=== PATIENT | female | born 1940 | race Caucasian/White ===

== ENCOUNTER 2017-07-18 09:56 | Emergency (ER) | payer OTHER ==
[~2017-07-18] VITALS: Ht 147.3 cm; Wt 68.1 kg
[~2017-07-18 09:56] MED LIST: ASPIR 8181 M1 PO; CALCIUM 500 WI1 EAC2 PO; CALCIUM PO; CENTRUM SILVER1 EAC3 PO; CITALOPRAM HBR20 MG PO; DICYCLOMINE HCL10 MG PO; FEMARA2.5 MG PO; HYDROCHLOROTHIA25 MG PO; KEFLEX500 MG PO; LEVOTHYROXINE112 MCG PO; LOPRESSOR25 MG PO; NASAL SPRAY BOTH NARES; OMEGA-3 FLAXS1000 MG PO; VIT D PO
[2017-07-18 10:26] LABS: HEMATOCRIT 33.7 % (36.0-46.0); HEMOGLOBIN 11.3 G/DL (11.9-15.5); MCH 28.8 PG (29.0-34.0); MCHC 33.5 G/DL (30.0-36.0); PLATELET COUNT 300 K/uL (156-360); RBC DIS.WIDTH-CV 13.2 % (11.8-14.6); RBC DIS.WIDTH-SD 41.6 % (39-53); RED BLOOD COUNT 3.92 M/uL (3.80-5.20); WHITE BLOOD COUNT 16.2 K/uL (4.1-10.2)
[2017-07-18 11:04] LABS: ALBUMIN 3.8 G/DL (3.2-4.8); ALKALINE PHOSPHATASE 42 IU/L (3-129); ALT (GPT) 9 IU/L (3-49); AST (GOT) 14 IU/L (2-34); CHLORIDE 99 MEQ/L (99-109); CREATININE 0.6 MG/DL (0.6-1.3); GFR ESTIMATE (CALCULATED) > 59 mL/min/; GLUCOSE 149 mg/dL (70-99); POTASSIUM 3.2 MEQ/L (3.7-5.4); SODIUM 135 MEQ/L (136-147); TOTAL BILIRUBIN 0.4 MG/DL (0.0-1.0); TOTAL PROTEIN 6.9 G/DL (6.4-8.3); UREA NITROGEN (BUN) 7 mg/dL (9-23)
[2017-07-18 13:55] LABS: C DIFF TOXIN NEGATIVE (NEGATIVE)
[2017-07-18 15:29] LABS: APPEARANCE CLEAR ((CLEAR)); BILIRUBIN NEGATIVE; BLOOD SMALL; COLOR YELLOW ((YELLOW)); GLUCOSE (STRIP) NEGATIVE; KETONES NEGATIVE; LEUKOCYTES TRACE; NITRITE NEGATIVE; PROTEIN (STRIP) NEGATIVE; SPECIFIC GRAVITY 1.018 (1.000-1.030); UROBILINOGEN 0.2 MG/DL (0.2-1.0)
[2017-07-18 15:34] LABS: BACTERIA NONE SEEN /HPF; EPITHELIAL CELLS RARE /HPF; MUCUS NONE SEEN /LPF; RED BLOOD CELLS 0-5 /HPF (0-5); UCUL ADDED? NO; WHITE BLOOD CELLS 0-5 /HPF (0-5)
[2017-07-18] MEDS ORDERED: FLAGYL500 MG PO (16:30)
[2017-07-18] MEDS ORDERED: CIPRO500 MG PO (16:30)
[2017-07-18] MEDS ORDERED: ZOFRAN ODT4 MG PO (16:30)
[2017-07-18 17:18] VITALS: BP 126/59
== END 2017-07-18 17:20 | disposition home or self-care (01) ==
LOC: EME 09:56
PROVIDERS: Emergency Medicine
DX: K52.9 Noninfective gastroenteritis and colitis, unspecified (principal); E86.0 Dehydration; I10 Essential (primary) hypertension; F41.9 Anxiety disorder, unspecified; F32.9 Major depressive disorder, single episode, unspecified; Z85.3 Personal history of malignant neoplasm of breast; Z79.82 Long term (current) use of aspirin; Z88.6 Allergy status to analgesic agent; Z88.2 Allergy status to sulfonamides; Z88.0 Allergy status to penicillin
CPT/HCPCS: 74177; 80053; 81003; 83605; 85027; 87040; 87493; 87506; 99281; 99284; J2405; J7030